=== PATIENT | female | born 1960 ===

== ENCOUNTER 2022-11-27 16:04 | Outpatient (CLI) | payer OTHER ==
--- NOTE | 2022-11-27 17:31 | Ultrasound Report ---
PROCEDURE: Pelvic w/Transvaginal INDICATIONS: POST MENOPAUSAL BLEEDING TECHNIQUE: Real-time scanning was performed of the pelvic organs, with image documentation. Additional endovagi nal scanning was necessary due to incomplete visualization of the adnexal and endometrial structures by transabdominal scanning. COMPARISON: None. FINDINGS: Uterus: Uterus is anteverted and normal in size at 8.7 x 5.2 x 5.5 cm. The myometrium is homogeneou s. The endometrium measures 24.4 mm in combined thickness. It is heterogeneous. There is increased vascularity. Ovaries: The right ovary measures 2.9 x 2.3 x 3.4 cm, with a calculated ovarian volume of 11.9 cc. The left ovary measures 2.2 x 1.9 x 1.8 cm, with a calculated ovarian volume of 3.9 cc. Bilateral foc i of complex echogenicity are noted within the ovaries measuring 2.4 x 1.2 x 2.0 cm on the right and 1.0 x 0.6 x 1.0 cm on the left. Other: No pathologic free abdominal or pelvic fluid. IMPRESSION: Heterogeneous enlargement of the endometrium with increased vascularity. Overall appearance in a post menopausal female with bleeding is highly suspicious for malignancy and biopsy is recommended. Complex ovarian foci present possibly related to complex cysts. However, interval follow-up is recomm ended given postmenopausal age. Reviewed by: Vanessa Hallman MD on 11/27/2022 5:30 PM PDT Approved by: Vanessa Hallman MD on 11/27/2022 5:30 PM PDT Station ID: [id number]
== END 2022-11-27 16:05 | disposition home or self-care (01) ==
LOC: DI 16:04
PROVIDERS: ATTEND Nurse Practitioner
DX: N85.2 Hypertrophy of uterus (principal); N95.0 Postmenopausal bleeding; Z79.890 Hormone replacement therapy

== ENCOUNTER 2023-01-11 14:53 | Outpatient (CLI) | payer OTHER ==
[2023-01-11 15:09] LABS: BASOPHILS # (AUTO) 0.1 10^3/uL (0.0-0.1); BASOPHILS % (AUTO) 0.7 %; EOSINOPHILS # (AUTO) 0.3 10^3/uL (0.0-0.7); EOSINOPHILS % (AUTO) 3.8 %; HGB - HEMOGLOBIN 13.5 g/dL (12.0-16.0); MEAN CORPUSCULAR HEMOGLOBIN 31.5 pg (27.0-31.0); MEAN CORPUSCULAR HGB CONC 32.9 g/dL (32.0-36.0); MEAN CORPUSCULAR VOLUME 95.6 fL (81.0-99.0); MEAN PLATELET VOLUME 10.3 fL (7.9-10.8); MONOCYTES # (AUTO) 0.5 10^3/uL (0.0-1.0); MONOCYTES % (AUTO) 7.2 %; NEUTROPHILS # (AUTO) 3.9 10^3/uL (1.5-6.6); PLT - PLATELET COUNT 261 10^3/uL (130-450); RED BLOOD COUNT 4.29 10^6/uL (4.20-5.40); RED CELL DISTRIBUTION WIDTH 13.3 % (12.0-15.0); WHITE BLOOD COUNT 6.8 x10^3/uL (4.8-10.8)
== END 2023-01-11 14:54 | disposition home or self-care (01) ==
LOC: LAB 14:53
PROVIDERS: ATTEND Obstetrics & Gynecology
DX: Z01.812 Encounter for preprocedural laboratory examination (principal); N95.0 Postmenopausal bleeding; N84.0 Polyp of corpus uteri
CPT/HCPCS: 36415; 85025

== ENCOUNTER 2023-01-12 09:03 | Day surgery (SDC) | payer OTHER ==
--- NOTE | 2023-01-12 08:37 | ANESTHESIA ---
Pre-Anesthesia VS, & Labs - Diagnosis post-menopausal bleeding, endometrial polyp - Procedure myosure hysteroscopy, D&C, polypectomy - NPO >8 hours - Is Patient ?: No - Lab Results Lab results reviewed: Yes Home Medications and Allergies Home Medications: Ambulatory Orders Multivitamin 1 each PO DAILY 12/31/22 Multivitamin 1 each PO DAILY 12/31/22 Allergies/Adverse Reactions: Allergies Allergy/AdvReac Type Severity Reaction Status Date / Time No Known Drug Allergies Allergy Verified 01/04/23 07:22 Anes History & Medical History - Medical History Cardiovascular: reports: None Pulmonary: reports: None Gastrointestinal: reports: None Urinary: reports: Kidney stones Musculoskeletal: reports: None Endocrine/Autoimmune: reports: None Skin: reports: None - Surgical History Orthopedic: reports: Arthroscopic surgery, Other Exam General: Alert, Oriented x3, Cooperative Dental: WNL Mouth Openin Fingerbreadth Neck Mobility: Normal Mallampati classification: II Thyromental Distance: 4-6 cm Respiratory: Lungs clear, Normal breath sounds, No respiratory distress Cardiovascular: Regular rate Neurological: Normal speech Mental/Cognitive Status: Alert/Oriented X3, Normal for patient Cognitive Status: Within normal limits Plan Anesthesia Type: General Consent for Procedure(s) Verified and Reviewed: Yes Code Status: Attempt Resuscitation ASA classification: 2-Mild systemic disease Is this case an emergency?: No
[~2023-01-12 09:03] MED LIST: LIDOCAINE-PF 2% 10 ML AMP SUBQ ONE; MIDAZOLAM 2 MG/2 ML VIAL ONE; PROPOFOL 200 MG/20 ML VIAL IVP ONE; fentaNYL 100 MCG/2 ML VIAL ONE
[2023-01-12] MEDS ORDERED: CELECOXIB 100 MG CAPSULE PO ONE (09:13)
[2023-01-12] MEDS ORDERED: ACETAMINOPHEN 500 MG TABLET PO ONE (09:14)
[2023-01-12] MEDS ORDERED: GABAPENTIN 400 MG CAPSULE ONE (09:14)
[2023-01-12] MEDS ORDERED: LACTATED RINGERS 1,000 ML IV ONE ×2 (09:15→10:46)
[2023-01-12] MEDS ORDERED: fentaNYL 100 MCG/2 ML VIAL IVP PRN (09:23)
[2023-01-12] MEDS ORDERED: HYDROmorphone 0.5 MG/0.5 ML SYRINGE IVP PRN (09:23)
[2023-01-12] MEDS ORDERED: ePHEDrine 50 MG/ML VIAL IVP PRN (09:23)
[2023-01-12] MEDS ORDERED: ONDANSETRON 4 MG/2 ML VIAL IVP PRN (09:23)
[2023-01-12] MEDS ORDERED: ATROPINE ABBOJECT 1 MG/10 ML SYRINGE IVP PRN (09:23)
[2023-01-12] MEDS ORDERED: METOCLOPRAMIDE 10 MG/2 ML VIAL IVP PRN (09:23)
[2023-01-12] MEDS ORDERED: MORPHINE 2 MG/ML CARPUJECT IVP PRN (09:23)
[2023-01-12] MEDS ORDERED: NALOXONE 0.4 MG/ML VIAL IVP PRN (09:23)
[2023-01-12] MEDS ORDERED: LIDOCAINE MPF 2%-EPI 1:200000 20 ML VIAL ONE (09:56)
[2023-01-12] MEDS ORDERED: BUPIVACAINE 0.25% PF 30 ML VIAL ONE (09:56)
[2023-01-12] MEDS ORDERED: LACTATED RINGERS 1,000 ML IV SCH (10:00)
[2023-01-12] MEDS ORDERED: DEXAMETHASONE 4 MG/ML VIAL ONE (10:23)
[2023-01-12] MEDS ORDERED: ONDANSETRON 4 MG/2 ML VIAL ONE (10:23)
[2023-01-12] MEDS ORDERED: BUPIVACAINE 0.25% PF 30 ML VIAL SUBQ ONE (10:34)
[2023-01-12] MEDS ORDERED: LIDOCAINE 2%-EPI 1:100000 20 ML MDV SUBQ ONE (10:34)
[2023-01-12] MEDS ORDERED: oxyCODONE 5 MG TABLET PO PRN (10:41)
--- NOTE | 2023-01-12 10:46 | OPERATIVE REPORT ---
Operative Report - General Procedure Date: 01/12/23 Planned Procedure: Hysteroscopy, D&C, uterine polypectomy Pre-Op Diagnosis: Postmenopausal bleeding, uterine polyp Procedure Performed: Hysteroscopy, D&C, uterine polypectomy Post Op Diagnosis: Postmenopausal bleeding, uterine polyp - Procedure Note Primary Surgeon: Nghia Ayala MD Anesthesia Provider: Jose Alberto Francois CRNA Anesthesia Technique: General LMA Pathology: Endometrial polyp IV Fluids (mL): 200 Estimated Blood Loss (mL): 5 Urine Output (mL): 75 Complications: None - Other Other Information/Narrative: Patient was taken to the procedure room and placed in dorsal lithotomy position. Hibiclens was used to clean the operative area. [place] speculum was palced in the vagina and the cervix was visualized. The anterior lip the cervix was grasped with a single-tooth tenaculum. 4 mL of local anesthesia was used to perform a cervical block. The cervix was non-stenotic and allowed the easy passage of dilators. Hysteroscope was then used to hydrodilate using normal saline distention media. Hysteroscope was advanced without difficulty using hydrodistention. Cervical canal was noted to have a large polyp protruding from the fundus down to the canal. Upon entry into the internal cervical os there was noted to be enlarged, violaceous polyp within the uterus. This was attached at the fundus. The MyoSure device was then the used to resect the polyp and after the removal, normal contour and appearance of the uterus was noted. Bilateral tubal ostia were noted. Hysteroscope was then removed. Tenaculum was then removed from the cervix noted to be hemostatic. All instruments removed from the vagina Fluid deficit 65 mL.
--- NOTE | 2023-01-12 11:18 | ANESTHESIA POST OP EVALUATION ---
Anesthesia Post Eval - Post Anesthesia Eval Vitals: Last Vital Signs Temp 36.6 C 01/12/23 11:15 Pulse 68 01/12/23 11:15 Resp 16 01/12/23 11:15 BP 134/80 H 01/12/23 11:15 Pulse Ox 99 01/12/23 11:15 O2 Flow Rate CV Function Including HR & BP: Stable Pain Control: Satisfactory Nausea & Vomiting: Negative Mental Status: Baseline Respiratory Status: Airway Patent Hydration Status: Satisfactory Anesthesia Complications: None
[2023-01-12] MEDS ORDERED: oxyCODONE 5 MG TABLET ONE (11:21)
[2023-01-12 11:47] VITALS: BP 133/81
== END 2023-01-12 09:04 | disposition home or self-care (01) ==
LOC: SDS 09:03
PROVIDERS: ATTEND Obstetrics & Gynecology
PROC: 0UB98ZZ Excision of Uterus, Via Natural or Artificial Opening Endoscopic (ICD-10-PCS; principal; 2023-01-12 10:45)
DX: N84.0 Polyp of corpus uteri (principal); N95.0 Postmenopausal bleeding
CPT/HCPCS: 58558; A9270; J7120

== ENCOUNTER 2023-03-12 14:37 | Outpatient (CLI) | payer OTHER ==
--- NOTE | 2023-03-12 17:30 | Ultrasound Report ---
PROCEDURE: Pelvic w/Transvaginal INDICATIONS: OVARIAN CYST TECHNIQUE: Real-time scanning was performed of the pelvic organs, with image documentation. Additional endovagi nal scanning was necessary due to incomplete visualization of the adnexal and endometrial structures by transabdominal scanning. COMPARISON: 11/27/2022 FINDINGS: Uterus: 6.3 x 3.1 x 3.9 cm. Retroverted positioning. Endometrium within normal limits at 4 mm. Ovaries: Right ovary measures a volume of 6 cc. Simple complex cystic lesions again seen, not signifi cantly changed compared to November, measuring up to 1.7 cm. Left ovary measures a volume of 4 cc. Subcentimeter cyst is present. Other: Incidentally noted mild free fluid is seen in the right adnexa. IMPRESSION: Incidentally noted mild free fluid at the right adnexal region. Grossly stable small complex cysts in the right ovary. Endometrium measures 4 mm. Reviewed by: Kiko Hanson MD on 03/12/2023 5:29 PM PDT Approved by: Kiko Hanson MD on 03/12/2023 5:29 PM PDT Station ID: [id number]
== END 2023-03-12 14:38 | disposition home or self-care (01) ==
LOC: DI 14:37
PROVIDERS: ATTEND Obstetrics & Gynecology
DX: N83.292 Other ovarian cyst, left side (principal); N83.291 Other ovarian cyst, right side

== ENCOUNTER 2023-04-09 13:35 | Outpatient (CLI) | payer OTHER ==
--- NOTE | 2023-04-12 11:58 | Mammography Report ---
BILATERAL DIGITAL SCREENING MAMMOGRAM 3D/2D WITH AUGMENTATION: 04/09/2023 CLINICAL: Routine screening. Comparison is made to exams dated: 03/03/2021 mammogram and 07/13/2013 mammogram - [facility]. There are scattered areas of fibroglandular density in both breasts (category b / 25%-50% glandular t issue). Bilateral breast implants are present. No significant masses, calcifications, or other findings are seen in either breast. There has been no significant interval change. IMPRESSION: BENIGN There is no mammographic evidence of malignancy. A 1 year screening mammogram is recommended. Based on the Tyrer Cuzick model (a risk assessment model) the patients lifetime risk is 9.3% and her 10 year risk is 4.0%. According to the ACR, ACS, and NCCN guidelines, an annual breast MRI exam jeff g with mammogram is recommended if the patients lifetime risk is 20% or greater. This exam was interpreted at Station ID: [id number]. NOTE: For mammograms, a report in lay terms will be sent to the patient. Approximately 15% of breast malignancies will not be visualized mammographically. In the management of a palpable breast mass, a negative mammogram must not discourage biopsy of a clinically suspicious lesion. Electronically Signed By: Kiko krishnamurthy/celia:04/09/2023 14:57:44 letter sent: No_Letter ACR BI-RADS Category 2: Benign Finding(s) 3342F PARENCHYMAL PATTERN: (A) - The breast(s) demonstrate(s) scattered fibroglandular densities. BI-RADS CATEGORY: (2) - 2 Mammogram [id number] 1 year screening LATERALITY: (B)
== END 2023-04-09 13:36 | disposition home or self-care (01) ==
LOC: DI 13:35
PROVIDERS: ATTEND Nurse Practitioner
DX: Z12.31 Encounter for screening mammogram for malignant neoplasm of breast (principal)

== ENCOUNTER 2024-04-02 09:44 | Outpatient (CLI) | payer OTHER ==
--- NOTE | 2024-04-02 10:34 | Ultrasound Report ---
PROCEDURE: Pelvic w/Transvaginal INDICATIONS: OVARIAN CYST TECHNIQUE: Real-time scanning was performed of the pelvic organs, with image documentation. Additional endovagi nal scanning was necessary due to incomplete visualization of the adnexal and endometrial structures by transabdominal scanning. COMPARISON: 03/12/2023, 11/27/2022. FINDINGS: Uterus: Uterus is retroverted and normal in size at 5.5 x 3.2 x 3.4 cm. The myometrium is heterogen eous. The endometrium measures 3 mm in combined thickness. No endometrial mass or fluid is seen on the current study. 5 x 4 x 4 mm nabothian cyst is seen in the endocervical canal. Ovaries: The right ovary measures 2.9 x 1.3 x 2.1 cm, with a calculated ovarian volume of 4.05 cc. The left ovary measures 2.0 x 1.1 x 1.1 cm, with a calculated ovarian volume of 1.2 cc. Simple cyst is seen in right ovary measures 1.4 x 1.3 x 1.5 cm in size not significantly changed from present study. There is an adjacent cystic structure measures 1.4 x 1.1 x 1.1 cm in size and contain s a internal echogenic focus measures 0.6 x 0.6 x 1.1 cm in size. 0.8 x 0.8 x 0.4 cm simple cyst is s een in left ovary. Less than 12 follicles can be seen in each ovary. No adnexal masses are seen. No cystic lesions measuring greater than 3 cm. Other: No pathologic free abdominal or pelvic fluid. IMPRESSION: 1. Bilateral simple appearing cysts as above. 2. 1.4 cm cystic structure in right ovary with internal 1.1 cm echogenic focus. Continued ultrasound follow-up is recommended. 3. No endometrial mass or fluid. No polyp is seen. Reviewed by: Issac Huizar MD on 04/02/2024 10:32 AM PDT Approved by: Issac Huizar MD on 04/02/2024 10:32 AM PDT Station ID: [id number]
== END 2024-04-02 09:45 | disposition home or self-care (01) ==
LOC: DI 09:44
PROVIDERS: ATTEND Nurse Practitioner
DX: N83.292 Other ovarian cyst, left side (principal); N83.291 Other ovarian cyst, right side

== ENCOUNTER 2024-04-11 12:40 | Outpatient (CLI) | payer OTHER ==
[2024-04-11 13:08] LABS: ALBUMIN 4.8 g/dL (3.2-5.5); ALBUMIN/GLOBULIN RATIO 1.8 (1.0-2.2); BILIRUBIN,TOTAL 0.9 mg/dL (0.2-1.0); CALCIUM 10.2 mg/dL (8.5-10.3); CREATININE 0.8 mg/dL (0.6-1.3); POTASSIUM 3.4 mmol/L (3.5-4.5); TOTAL PROTEIN 7.5 g/dL (6.4-8.9)
[2024-04-11 13:10] LABS: AMPHETAMINE SCREEN,URINE POSITIVE (NEGATIVE); BARBITURATE SCREEN,UR NEGATIVE (NEGATIVE); BENZODIAZEPINES SCREEN, URINE NEGATIVE (NEGATIVE); COCAINE SCREEN URINE NEGATIVE (NEGATIVE); METHADONE SCREEN, URINE NEGATIVE (NEGATIVE); METHAMPHETAMINES SCREEN, URINE NEGATIVE (NEGATIVE); OPIATE SCREEN, URINE NEGATIVE (NEGATIVE); OXYCODONE SCREEN, URINE NEGATIVE (NEGATIVE); THC CANNABINOID SCREEN, URINE POSITIVE (NEGATIVE); TRICYCLIC ANTIDEPRESSANT,URINE NEGATIVE (NEGATIVE)
[2024-04-11 13:11] LABS: BUPRENORPHINE SCREEN, URINE NEGATIVE (NEGATIVE)
[2024-04-11 13:22] LABS: THYROID STIMULATING HORMONE 1.27 uIU/mL (0.34-5.60)
== END 2024-04-11 12:41 | disposition home or self-care (01) ==
LOC: LAB 12:40
PROVIDERS: ATTEND Nurse Practitioner
DX: R53.83 Other fatigue (principal)
CPT/HCPCS: 36415; 80053; 80306; 84443

== ENCOUNTER 2024-05-18 10:43 | Outpatient (CLI) | payer OTHER ==
--- NOTE | 2024-05-18 14:40 | Ultrasound Report ---
PROCEDURE: Pelvic w/Transvaginal INDICATIONS: OVARIAN CYST TECHNIQUE: Real-time scanning was performed of the pelvic organs, with image documentation. Additional endovagi nal scanning was necessary due to incomplete visualization of the adnexal and endometrial structures by transabdominal scanning. COMPARISON: Pelvic ultrasound 04/02/2024 FINDINGS: Uterus: Uterus is retroverted and normal in size at 5.5 x 3.1 x 3.8 cm. The myometrium is heterogen ous. The endometrium measures 4.6 mm in combined thickness. Ovaries: The right ovary measures 2.9 x 1.5 x 2.8 cm, with a calculated ovarian volume of 6.4 cc. T he left ovary measures 3.1 x 1.7 x 1.5 cm, with a calculated ovarian volume of 4.1 cc. Less than 12 follicles can be seen in each ovary. In the right ovary, there is a 1.6 x 1.4 x 1.4 cm anechoic, simple cyst without significant change. T here is also a 1.1 x 1.0 x 1.4 cm bilobed right ovarian cyst with a thin internal septation and a 0.7 x 0.6 x 1.1 cm solid focus without significant vascularity; the solid focus was previously solid and cystic. In the left ovary, there is a 0.7 x 0.4 x 0.6 cm anechoic simple cyst. Other: No pathologic free abdominal or pelvic fluid. IMPRESSION: Borderline increased endometrial thickness approaching endometrial hyperplasia, and a complex right o varian 1.4 cm cyst. Gynecological referral recommended for evaluation of both findings. If necessary, an MRI pelvis with and without contrast can be performed for further evaluation. Reviewed by: Kiko Schulz MD on 05/18/2024 2:39 PM PDT Approved by: Kiko Schulz MD on 05/18/2024 2:39 PM PDT Station ID: [id number]
== END 2024-05-18 10:44 | disposition home or self-care (01) ==
LOC: DI 10:43
PROVIDERS: ATTEND Nurse Practitioner
DX: N83.201 Unspecified ovarian cyst, right side (principal); R93.89 Abnormal findings on diagnostic imaging of other specified body structures